=== PATIENT | male | born 1945 | race Caucasian/White ===

== ENCOUNTER 2019-03-08 19:49 | Inpatient (IN) ==
[2019-03-08] MEDS ORDERED: 0.9 % SODIUM CHLORIDE 1,000 ML IV ONE (20:07)
[2019-03-08] MEDS ORDERED: ASPIRIN 81 MG TAB.CHEW CHEWED ONE (20:19)
--- NOTE | 2019-03-08 20:23 | Emergency Department Note ---
Syncope HPI - General Chief Complaint: Syncope Stated Complaint: weakness, feeling of passing out Time Seen by Provider: 03/08/19 19:59 Source: patient, family Mode of arrival: wheelchair Limitations: no limitations - History of Present Illness HPI Narrative: Patient was at [employer] this evening, he was standing when he felt somewhat lightheaded and had a syncope episode that he is feeling much better at this time denies any chest pain no shortness of breath he states that sometimes his blood sugar does get low but his Accu-Chek at this time is 90 has a history of chronic back pain and occasion that has made him feel lightheaded and dizzy as well he states dates he had an episode of [employer] 2 months ago in which he became lightheaded because of his back pain he states. He has no history of A. fib but EKG does shows some A. fib. He states however though he was told that he had an irregular heartbeat in the past, we have some old records but see no indication that there is a history of A. fib - Related Data Home Medications Medication Instructions Recorded Confirmed ascorbic acid (vitamin C) 1,000 mg 1,000 mg PO QDAY tab 05/26/15 09/20/18 tablet cholecalciferol (vitamin D3) 5,000 5,000 unit PO QDAY cap 05/26/15 09/20/18 unit capsule naproxen sodium 220 mg capsule 220 mg PO Q8H PRN cap 05/26/15 09/20/18 vitamin B complex tablet 1 tab-cap PO QDAY tab 05/26/15 09/20/18 Previous Rx's Medication Instructions Recorded blood-glucose meter kit See Dose Instructions .ROUTE 11/11/15 .MEDSUPPLY #1 each Massage Therapy #16 each 11/01/17 amlodipine 10 mg tablet 10 mg PO QAM #90 tab 09/20/18 atorvastatin 20 mg tablet 20 mg PO QDAY #90 tab 09/20/18 methocarbamol 750 mg tablet 750 mg PO QDAY PRN #90 tab 09/20/18 Allergies Allergy/AdvReac Type Severity Reaction Status Date / Time No Known Drug Allergies Allergy Verified 03/08/19 19:57 Review of Systems All systems ED: reviewed and negative except as stated. Constitutional: Denies: fever, chills Eyes: Denies: as per HPI, eye pain ENT ED: Denies: ear pain Cardiovascular: Denies: chest pain, palpitations Respiratory: Denies: shortness of breath, cough Gastrointestinal: Denies: abdominal pain Genitourinary: Denies: dysuria Musculoskeletal: Denies: back pain, joint swelling Integumentary: Denies: rash, lesions Neurological: Denies: headache, weakness Psychiatric: Denies: anxiety, depression Endocrine: Denies: fatigue Hematological/Lymphatic: Denies: easy bleeding Allergic/Immunologic: Denies: facial swelling Past Medical History - Past Medical History [facility] Narrative: All Active Problems (Last Reviewed 09/20/18 @ 08:34 by Benita Seth, ALYSSA, LODGING MANAGER) Fever (Acute) Cough (Acute) Chronic low back pain (Chronic) Cognitive changes (Chronic) History of colonoscopy (Chronic 07/23/16) Osteoarthritis (Chronic) Hypertension, essential (Chronic 07/25/06) Hyperlipemia (Chronic 07/24/07) Diabetes mellitus, type II (Chronic 02/16/07) Past Surgical History (Last Reviewed 09/20/18 @ 08:34 by Benita Seth DNP, LODGING MANAGER) History of colonoscopy (Chronic 07/23/16) History of knee replacement (Resolved ~01/2013) History of lumbar fusion (Resolved ~07/2010) History of tympanoplasty of right ear (Resolved ~1995) S/P cataract surgery (Resolved) S/P excision of ganglion cyst (Resolved ~1990) Family History (Last Reviewed 09/20/18 @ 08:35 by Benita Seth DNP, LODGING MANAGER) Mother Family history of malignant neoplasm Leukopenia Father Family history of diabetes mellitus Grandfather Myocardial infarction Grandmother Leukemia - Social History smoking status: Never smoker Alcohol use: Reports: None Drug use: Reports: none Physical Exam Limitations: no limitations General appearance: alert Head: atraumatic, normocephalic Eye: Present: normal appearance, PERRL ENT: normal exam, normal oropharynx, mucous membranes dry Neck: Present: normal inspection, full ROM Chest: Present: normal inspection, symmetric chest wall rise. Absent: tenderness Respiratory: Present: normal lung sounds bilaterally. Absent: respiratory distress, rales/crackles, wheezes Cardiovascular: Present: regular rate, normal rhythm. Absent: bradycardia, tachycardia Abdominal: Present: soft Extremities: Present: normal inspection, full ROM. Absent: tenderness Back: Present: normal inspection, full ROM. Absent: tenderness Neurological: Present: alert, oriented X3, CN II-XII intact Psychiatric: Present: normal affect, normal mood Skin: Present: warm, cool, dry Course Vital Signs Temperature 97.0 F 03/08/19 19:50 Pulse Rate 84 03/08/19 19:50 Respiratory Rate 18 03/08/19 19:50 Blood Pressure 128/68 03/08/19 19:50 Pulse Oximetry (%) 96 03/08/19 19:50 Temperature 97.0 F 03/08/19 19:50 Pulse Rate 58 L 03/08/19 22:16 Respiratory Rate 13 03/08/19 22:16 Blood Pressure 118/79 03/08/19 22:16 Pulse Oximetry (%) 98 03/08/19 22:16 Syncope - MDM Narrative Medical decision making narrative: On ED patient's A. fib had increased to 130s 140 rate A. fib RVR. Patient given cardia zyme 20 mg bolus along with drip patient still in A. fib but rate controlled at approximately 80WBC is 10,700 the hemoglobin 16.4 hematocrit 49.5 sodium is 142 the potassium 3.5 CK is 275 the MB is 5.2 troponin less than 0.01 BNP is [address] Amanda patient to be admitted - Lab Data Result diagrams: 03/08/19 20:13 03/08/19 21:13 Lab Results 03/08/19 03/08/19 03/08/19 Range/Units 20:13 20:13 20:13 WBC 10.7 (4.5-11.0) K/mcL RBC 5.63 (4.50-5.90) M/mcL Hgb 16.4 (13.5-16.5) g/dL Hct 49.5 (41.0-55.0) % POC Hct 50.0 (41.0-55.0) % MCV 87.9 (80.0-100.0) fL MCH 29.1 (26.0-34.0) pg MCHC 33.2 (31.0-36.0) g/dL RDW 14.0 (11.5-14.5) % Plt Count 275 (140-440) K/mcL MPV 8.6 (7.4-10.4) fL Gran % 72.1 (38.0-78.0) % Lymph % (Auto) 17.5 (15.5-49.0) % Edwards % (Auto) 8.8 (1.0-12.0) % Eos % (Auto) 1.1 (0.0-7.0) % Baso % (Auto) 0.5 (0.0-2.0) % Gran # 7.7 (1.8-8.0) K/mcL Lymph # (Auto) 1.9 (1.5-4.8) K/mcL Edwards # (Auto) 0.9 (0.1-0.9) K/mcL Eos # (Auto) 0.1 (0.0-0.7) K/mcL Baso # (Auto) 0.1 (0.0-0.3) K/mcL POC Sodium 141 (133-145) mmol/L Sodium Not Reportable POC Potassium 4.2 (3.3-5.1) mmol/L Potassium Not Reportable POC Chloride 105 (96-108) mmol/L Chloride Not Reportable Carbon Dioxide Not Reportable POC Total CO2 26 (22-30) mmol/L Anion Gap Not Reportable POC BUN 28 H (8-23) mg/dl BUN Not Reportable Creatinine Not Reportable POC Creatinine 1.3 H (0.7-1.2) mg/dl GFR Calculation Not Reportable Glucose TNP POC Glucose 96 (70-105) mg/dL Calcium Not Reportable POC WB Ioniz Calcium 1.05 L (1.16-1.32) mmol/L Total Bilirubin Not Reportable AST Not Reportable ALT Not Reportable Alkaline Phosphatase Not Reportable Total Creatine Kinase Not Reportable CK-MB (CK-2) Not Reportable Troponin T TNP NT-Pro-B Natriuret Pep Total Protein Not Reportable Albumin Not Reportable Globulin Not Reportable Albumin/Globulin Ratio Not Reportable 03/08/19 03/08/19 03/08/19 Range/Units 20:13 21:13 21:13 WBC (4.5-11.0) K/mcL RBC (4.50-5.90) M/mcL Hgb (13.5-16.5) g/dL Hct (41.0-55.0) % POC Hct (41.0-55.0) % MCV (80.0-100.0) fL MCH (26.0-34.0) pg MCHC (31.0-36.0) g/dL RDW (11.5-14.5) % Plt Count (140-440) K/mcL MPV (7.4-10.4) fL Gran % (38.0-78.0) % Lymph % (Auto) (15.5-49.0) % Edwards % (Auto) (1.0-12.0) % Eos % (Auto) (0.0-7.0) % Baso % (Auto) (0.0-2.0) % Gran # (1.8-8.0) K/mcL Lymph # (Auto) (1.5-4.8) K/mcL Edwards # (Auto) (0.1-0.9) K/mcL Eos # (Auto) (0.0-0.7) K/mcL Baso # (Auto) (0.0-0.3) K/mcL POC Sodium (133-145) mmol/L Sodium 142 POC Potassium (3.3-5.1) mmol/L Potassium 3.5 POC Chloride (96-108) mmol/L Chloride 105 Carbon Dioxide 21 L POC Total CO2 (22-30) mmol/L Anion Gap 16.0 POC BUN (8-23) mg/dl BUN 19 Creatinine 1.0 POC Creatinine (0.7-1.2) mg/dl GFR Calculation 74 Glucose 92 POC Glucose (70-105) mg/dL Calcium 8.4 L POC WB Ioniz Calcium (1.16-1.32) mmol/L Total Bilirubin 0.7 AST 23 ALT 22 Alkaline Phosphatase 78 Total Creatine Kinase 275 H CK-MB (CK-2) 5.2 H Troponin T < 0.01 NT-Pro-B Natriuret Pep TNP 675.4 H Total Protein 7.0 Albumin 4.1 Globulin 2.9 Albumin/Globulin Ratio 1.4 Disposition Pt seen by ASSISTANT DRAFTER/PA only: No Clinical Impression: Atrial fibrillation with RVR, Syncope Disposition: Xfer As Inpt ([facility]) Condition: Fair Referrals: Benita Seth, ALYSSA, LODGING MANAGER [Primary Care Provider] -
--- NOTE | 2019-03-08 20:37 | XRay Report ---
INDICATION: Syncope TECHNIQUE: AP chest x-ray,portable COMPARISON: Previous chest x-rays dated 12/23/2017, 12/16/2017, 03/08/2017 FINDINGS:Lungs are negative. No parenchymal infiltrate or mass. Heart size and vascularity are within normal limits. No pulmonary edema. No pulmonary congestion. IMPRESSION: 1. No acute abnormality 2. No interval change since 12/23/2017 Interpreted and Authenticated by: Sixto Leigh 03/08/19
[2019-03-08] MEDS ORDERED: DILTIAZEM 25 MG/5 ML VIAL IV ONE (20:41)
[2019-03-08] MEDS ORDERED: DILTIAZEM 125 MG in DEXTROSE 5% IN WATER 100 ML IV SCH (20:45)
[2019-03-08 20:46] LABS: Basophils # (Auto) 0.1 K/mcL (0.0-0.3); Basophils % (Auto) 0.5 % (0.0-2.0); Eosinophils # (Auto) 0.1 K/mcL (0.0-0.7); Eosinophils % (Auto) 1.1 % (0.0-7.0); Granulocytes % (Auto) 72.1 % (38.0-78.0); Lymphocytes # (Auto) 1.9 K/mcL (1.5-4.8); Lymphocytes % (Auto) 17.5 % (15.5-49.0); Mean Cell Volume 87.9 fL (80.0-100.0); Mean Corpuscular HGB Conc 33.2 g/dL (31.0-36.0); Monocytes # (Auto) 0.9 K/mcL (0.1-0.9); Monocytes % (Auto) 8.8 % (1.0-12.0); Platelet Count 275 K/mcL (140-440); RBC 5.63 M/mcL (4.50-5.90)
[2019-03-08 22:11] LABS: Creatine Kinase MB 5.2 ng/ml (0-4.9); proBNP 675.4 pg/ml (0-125)
[2019-03-08 22:15] LABS: ALT/SGPT 22 U/l (0-40); Albumin 4.1 gm/dL (3.2-5.2); Albumin/Globulin Ratio 1.4 (1.0-2.3); Alkaline Phosphatase 78 U/L (39-117); Blood Urea Nitrogen 19 mg/dl (8-23); Creatine Kinase 275 IU/L (24-195)
--- NOTE | 2019-03-08 22:32 | Internal Med History&Physical ---
Medical - H&P: [facility] Patient information: Note initiated : 03/08/19 at 10:31 pm Service Date, if different from initiated Date: [] Patient: Carlos Russell a 73 y/o M admitted on for weakness, feeling of passing out. Chief Complaint: [] Chief complaint: loss of consciousness History of present illness: Mr. Russell is a 73 year old M otherwise fairly healthy with a prior history of hypertension was in his baseline state felt. 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 He remained unconsciousness until the arrival of EMS and subsequently was brought in to [facility] ER. Initial workup in the ER was consistent with A. fib with RVR. Patient's was started on diltiazem drip. Initial cardiac enzymes were negative. No other precipitants were identified. Hospitalist service was subsequently consulted for admission At the time of evaluation patient is alert and oriented. Patient denies any other symptoms including chest palpitation, fever, recent changes in medications or [id number] herbal supplements or cough syrup. He denies alcoholism or smoking. He denies prior similar episodes. He follows up with primary care physician Benita Agosto Review of systems 10 point review systems was performed and is negative except as discussed above Medical - H&P: [facility] Medical history: Pneumonia (Resolved) Chronic low back pain (Chronic) Cognitive changes (Chronic) SLUMS test of 22 on 03/2017 Osteoarthritis (Chronic) low back Hypertension, essential (Chronic 07/25/06) currently treated with amlodipine Hyperlipemia (Chronic 07/24/07) no previous medication Diabetes mellitus, type II (Chronic 02/16/07) diagnosed when A1c was >6%; previously treated on Byetta; Victoza previously, stopped per Jayshree Lama PA-C; controlling with diet; no current medication therapy;; right foot with decreased vibratory sense, left foot with absent vibratory sense Cough (Resolved) Dysmetabolic syndrome X (Resolved 05/24/06) Surgical History History of colonoscopy (Chronic 07/23/16) history of adenomatous polyps; due 2020 History of knee replacement (Resolved ~01/2013) right; Dr. Márquez History of lumbar fusion (Resolved ~07/2010) 2010 L4-5; Dr. Márquez History of tympanoplasty of right ear (Resolved ~1995) from eardrum rupture as a child S/P cataract surgery (Resolved) right eye Jul 09, 2004; left eye Jul 29, 2004 S/P excision of ganglion cyst (Resolved ~1990) right ankle Family History Mother , 52 years of age Family history of malignant neoplasm rare type of blood cancer Leukopenia Father , 78 years of age Family history of diabetes mellitus Grandfather , 60 years of age from [place] Myocardial infarction Grandmother Leukemia Medical - H&P: Meds Home Medications Medication Instructions Recorded Confirmed Type ascorbic acid (vitamin C) 1,000 mg 1,000 mg PO QDAY tab 05/26/15 03/08/19 History tablet cholecalciferol (vitamin D3) 5,000 5,000 unit PO QDAY cap 05/26/15 03/08/19 History unit capsule vitamin B complex tablet 1 tab-cap PO QDAY tab 05/26/15 03/08/19 History amlodipine 10 mg tablet 10 mg PO QAM #90 tab 09/20/18 03/08/19 Rx atorvastatin 20 mg tablet 20 mg PO QDAY #90 tab 09/20/18 03/08/19 Rx methocarbamol 750 mg tablet 750 mg PO QDAY PRN #90 tab 09/20/18 03/08/19 Rx Allergies Allergy/AdvReac Type Severity Reaction Status Date / Time No Known Drug Allergies Allergy Verified 03/08/19 19:57 Medical - H&P: Exam - Constitutional Vitals: Temp Pulse Resp BP Pulse Ox 97.0 F 58 L 13 118/79 98 03/08/19 19:50 03/08/19 22:16 03/08/19 22:16 03/08/19 22:16 03/08/19 22:16 General appearance: no acute distress Exam: Alert oriented No sclerae icterus Oral cavity dry No ear discharge Head normocephalic No lymphadenopathy Irregular rhythm/RVR Diminished breath sounds bases Abdomen soft Lower extremity no cyanosis clubbing, no joint swelling and erythema Skin no suspicious lesion Psych alert and cooperative Neuro nonfocal Medical - H&P: Reslt - Labs CBC & Chem 7: 03/09/19 03:34 03/09/19 03:34 Labs: Short CBC 03/08/19 Range/Units 20:13 WBC 10.7 (4.5-11.0) K/mcL Hgb 16.4 (13.5-16.5) g/dL Hct 49.5 (41.0-55.0) % Plt Count 275 (140-440) K/mcL BMP 03/08/19 03/08/19 20:13 21:13 Sodium Not Reportable 142 Potassium Not Reportable 3.5 Chloride Not Reportable 105 Carbon Dioxide Not Reportable 21 L BUN Not Reportable 19 Creatinine Not Reportable 1.0 Glucose TNP 92 Calcium Not Reportable 8.4 L Cardiac Enzymes 03/08/19 03/08/19 03/08/19 Range/Units 20:13 20:13 21:13 Total Creatine Kinase Not Reportable 275 H CK-MB (CK-2) Not Reportable 5.2 H Troponin T TNP 03/08/19 Range/Units 21:13 Total Creatine Kinase CK-MB (CK-2) Troponin T < 0.01 Liver Function 03/08/19 03/08/19 Range/Units 20:13 21:13 Total Bilirubin Not Reportable 0.7 AST Not Reportable 23 ALT Not Reportable 22 Alkaline Phosphatase Not Reportable 78 Albumin Not Reportable 4.1 Medical - H&P: A/P (1) Atrial fibrillation with RVR Current visit: Yes Status: Acute * Afib with RVR- new onset. Continue diltiazem drip. Check echocardiogram. Transfer to telemetry. Start full dose anticoagulation in anticipation of car dioversion * Syncope- likely secondary to A. fib RVR and drop in cerebral perfusion. Check orthostatics/echocardiogram to rule out critical valvular lesion * History of hypertension-restart home meds * Full code * Prophylaxis Lovenox full dose Plan * Continue rate control measures * A. fib workup * Full dose anticoagulation * Telemetry readmit
[2019-03-09] MEDS ORDERED: ACETAMINOPHEN 1,000 MG/100 ML BOTTLE IV PRN (00:35)
[2019-03-09] MEDS ORDERED: DEXTROSE 50% 50 ML VIAL IV PRN (00:35)
[2019-03-09] MEDS ORDERED: MAGNESIUM SULFATE 2 GM/50 ML BAG IV PRN (00:35)
[2019-03-09] MEDS ORDERED: METOPROLOL TARTRATE 5 MG/5 ML VIAL IV PRN (00:35)
[2019-03-09] MEDS ORDERED: DEXTROSE 31 GM ORAL.SUSP PO PRN (00:35)
[2019-03-09] MEDS ORDERED: POTASSIUM CHLORIDE 20 MEQ PACKET PO PRN (00:35)
[2019-03-09] MEDS ORDERED: ACETAMINOPHEN 325 MG TABLET PO PRN (00:35)
[2019-03-09] MEDS ORDERED: ONDANSETRON 4 MG/2 ML VIAL IV PRN (00:35)
[2019-03-09] MEDS: 0.9 % SODIUM CHLORIDE 1,000 ML IV SCH ×2 (00:40→20:27)
[2019-03-09] MEDS ORDERED: DILTIAZEM 30 MG TABLET ONE (01:08)
[2019-03-09] MEDS ORDERED: ENOXAPARIN 120 MG/0.8 ML SYRINGE ONE (01:08)
[2019-03-09] MEDS: DILTIAZEM 30 MG TABLET PO SCH ×3 (02:26→12:21)
[2019-03-09] MEDS: ENOXAPARIN 120 MG/0.8 ML SYRINGE SQ SCH ×2 (02:27→09:39)
[2019-03-09] MEDS: 0.9 % SODIUM CHLORIDE 10 ML SYRINGE IV SCH ×3 (05:44→20:48)
[2019-03-09 06:06] LABS: Mean Cell Volume 89.2 fL (80.0-100.0); Mean Corpuscular HGB Conc 32.9 g/dL (31.0-36.0); Platelet Count 239 K/mcL (140-440); RBC 4.99 M/mcL (4.50-5.90); Red Cell Distribution Width 14.3 % (11.5-14.5)
[2019-03-09 06:38] LABS: ALT/SGPT 19 U/l (0-40); Albumin 3.5 gm/dL (3.2-5.2); Albumin/Globulin Ratio 1.4 (1.0-2.3); Alkaline Phosphatase 69 U/L (39-117); Bilirubin,Direct < 0.2 mg/dL (0.0-0.3); Blood Urea Nitrogen 19 mg/dl (8-23); Gamma Glutamyl Transpeptidase 15 U/L (8-61); Uric Acid 7.7 mg/dL (2.5-8.0)
[2019-03-09 06:57] LABS: Eosinophils % (Manual) 1 % (0-7); Lymphocytes % 22 % (15-49); Monocytes % (Manual) 6 % (1-12); Platelet Estimate NORMAL (NORMAL); RBC Morphology NORMAL (NORMAL); Segmented Neutrophils % 71 % (38-78)
[2019-03-09] MEDS: INSULIN LISPRO 1 UNIT/0.01 ML UNIT SQ SCH ×4 (07:18→20:48)
[2019-03-09] MEDS ORDERED: DILTIAZEM 125 MG in DEXTROSE 5% IN WATER 100 ML IV PRN (09:00)
[2019-03-09] MEDS: MULTIVIT,THER IRON,CA,FA & MIN 1 TABLET PO SCH (09:39)
[2019-03-09] MEDS: DOCUSATE SODIUM 100 MG CAPSULE PO SCH ×2 (09:39→20:48)
--- NOTE | 2019-03-09 11:20 | Internal Med Progress Note ---
Medical - PN: Subj Patient information: Note initiated : 03/09/19 at 11:16 am Service Date, if different from initiated Date: [] Patient: Carlos Russell a 73 y/o M admitted on 03/09/19 for weakness, feeling of passing out. Chief Complaint: [] Interval history: Mr. Russell is a 73 year old M otherwise fairly healthy with a prior history of hypertension was in his baseline state felt. 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 He remained unconsciousness until the arrival of EMS and subsequently was brought in to [facility] ER. Initial workup in the ER was consistent with A. fib with RVR. Patient's was started on diltiazem drip. Initial cardiac enzymes were negative. No other precipitants were identified. Hospitalist service was subsequently consulted for admission At the time of evaluation patient is alert and oriented. Patient denies any other symptoms including chest palpitation, fever, recent changes in medications or [id number] herbal supplements or cough syrup. He denies alcoholism or smoking. He denies prior similar episodes. He follows up with primary care physician Benita Agosto 03/09- patient doing well. No overnight events. No concerns per staff. No fever chills nausea vomiting. Converted to sinus early this morning. Denies chest pain shortness of breath. Negative cardiac enzymes. Negative pro- calcitonin. Echocardiogram pending. DC anticoagulation and diltiazem due to heart rate around 60. Check orthostatics. Possible discharge in 24 hours if clinically stable and remains in sinus. - Constitutional Vitals: Vital Signs Temp Pulse Resp BP Pulse Ox 97.5 F 50 L 20 112/75 98 03/09/19 08:00 03/09/19 04:43 03/09/19 08:00 03/09/19 08:00 03/09/19 08:00 Period Temp Pulse Resp BP Sys/Zamora Pulse Ox Last 24 Hr 97.0 F-97.5 F 44-136 12-30 88-186/61-154 92-99 Intake and Output 03/08/19 03/09/19 03/09/19 21:59 05:59 13:59 Intake Total 1000 497 480 Output Total 325 Balance 1000 497 155 Weight 288 lb 285 lb Intake & Output: Intake & Output 03/08/19 03/09/19 03/09/19 21:59 05:59 13:59 Intake Total 1000 497 480 Output Total 325 Balance 1000 497 155 Weight 288 lb 285 lb Intake: IV 1000 17 Sodium Chloride 0.9% 1,000 ml @ 1000 Wide Open IV .Q0M ONE Rx#: [id number] Cardizem 125 mg In Dextrose 5% 17 in Water 100 ml @ 5 MG/HR 5 mls /hr IV Q12H [facility] Rx#:[id number] Oral 480 480 Output: Void Amount 325 # of times incontinent of urine 0 Other: Meal Snack Breakfast Percent of Meal Consumed 100% 100% Feeding Ability Independent Independent Urine Appearance Clear Urine Color Bright Yellow Urine Odor Strong # Voids 0 General appearance: no acute distress Exam: Alert oriented NSR on telemetry Nonlabored breathing No lymphedema Medical - PN: Obj Da - Labs CBC & Chem 7: 03/09/19 03:34 03/09/19 03:34 Labs: Abnormal Lab Results 03/09/19 03/08/19 03/08/19 03:34 21:13 20:13 Carbon Dioxide 21 L POC BUN 28 H POC Creatinine 1.3 H Glucose 131 H Calcium 8.3 L 8.4 L POC WB Ioniz Calcium 1.05 L Total Creatine Kinase 275 H CK-MB (CK-2) 5.2 H NT-Pro-B Natriuret Pep 675.4 H Meds: Medications Acetaminophen (Tylenol) 650 mg PO Q4-6HP PRN PRN Reason: PAIN/FEVER > 101 Dextrose (Dextrose 50%) 0 ml IV UD PRN PRN Reason: Hypoglycemia Diagnostic Test (Pha) (Accu-Chek) 1 each FS ACHS [facility] Last Admin: 03/09/19 07:18 Dose: 1 each Documented by: Diltiazem HCl (Cardizem) 60 mg PO Q6 [facility] Last Admin: 03/09/19 07:12 Dose: Not Given Documented by: Docusate Sodium (Colace) 100 mg PO BID [facility] Last Admin: 03/09/19 09:39 Dose: 100 mg Documented by: Enoxaparin Sodium (Lovenox) 120 mg SQ BID [facility] Last Admin: 03/09/19 09:39 Dose: 120 mg Documented by: Glucose (Insta-Glucose) 15 gm PO PRN PRN PRN Reason: Hypoglycemia Diltiazem HCl 125 mg/ Dextrose 125 mls @ 5 mls/hr IV Q12HP PRN; Protocol PRN Reason: TITRATE TO KEEP HR<100, SBP>90 Magnesium Sulfate (Magnesium Sulfate) 2 gm in 50 mls @ 50 mls/hr IV UD PRN PRN Reason: MG = or < 1.7 Sodium Chloride (Sodium Chloride 0.9%) 1,000 mls @ 50 mls/hr IV .Q20H [facility] Stop: 03/11/19 12:34 Last Admin: 03/09/19 00:40 Dose: 50 mls/hr Documented by: Acetaminophen (Ofirmev) 1,000 mg in 100 mls @ 200 mls/hr IV Q6HP PRN PRN Reason: PAIN/FEVER > 101 Insulin Human Lispro (Humalog) 0 unit SQ ACHS [facility]; Protocol Last Admin: 03/09/19 07:18 Dose: Not Given Documented by: Iron Carb/Multivit/[place]/Folic Acid (Multivitamin W/Minerals) 1 tab PO DAILY SC H Last Admin: 03/09/19 09:39 Dose: 1 tab Documented by: Ondansetron HCl (Zofran) 4 mg IV Q4-6HP PRN PRN Reason: Nausea And Vomiting Potassium Chloride (Klor-Con) 40 meq PO DAILYP PRN PRN Reason: K+ < 3.5 Senna/Docusate Sodium (Senna Plus Tablet) 1 tab PO HS DIMITRIOS Sodium Chloride (Saline Flush) 10 ml IV Q8 [facility] Last Admin: 03/09/19 05:44 Dose: Not Given Documented by: Medical - PN: A/P - Time Spent With Patient Total time spent is greater than 50% in coordination of care (as documented) at patient's floor/unit and/or counseling patient: 25 - 35 minutes (1) Atrial fibrillation with RVR Status: Acute Assessment and plan: * Afib with RVR- new onset. Converted to sinus. DC diltiazem and anticoagulation. Await echocardiogram. * Syncope- likely secondary to A. fib RVR and drop in cerebral perfusion. Recheck orthostatics/echocardiogram to rule out critical valvular lesion * History of restart amlodipine * History of hyperkalemia continue statin * Full code * Prophylaxis ambulate Plan * DC calcium channel mona/anticoagulation * Await echocardiogram * Syncope workup * Possible discharge in 24 hours Current Visit: Yes Medical - PN: Qual - VTE Deep Vein Thrombosis/Pulmonary Embolism Present on Admission: No
[2019-03-09] MEDS ORDERED: SENNOSIDES/DOCUSATE SODIUM 1 TAB TABLET PO SCH (21:00)
[2019-03-10] MEDS: ENOXAPARIN 120 MG/0.8 ML SYRINGE SQ SCH ×2 (02:51→09:17)
[2019-03-10 05:43] LABS: Mean Cell Volume 89.1 fL (80.0-100.0); Mean Corpuscular HGB Conc 33.3 g/dL (31.0-36.0); Platelet Count 213 K/mcL (140-440); RBC 4.91 M/mcL (4.50-5.90); Red Cell Distribution Width 14.3 % (11.5-14.5)
[2019-03-10] MEDS: 0.9 % SODIUM CHLORIDE 10 ML SYRINGE IV SCH (05:53)
[2019-03-10 06:01] LABS: ALT/SGPT 18 U/l (0-40); Albumin 3.8 gm/dL (3.2-5.2); Albumin/Globulin Ratio 1.5 (1.0-2.3); Alkaline Phosphatase 70 U/L (39-117); Bilirubin,Direct < 0.2 mg/dL (0.0-0.3); Blood Urea Nitrogen 21 mg/dl (8-23); Gamma Glutamyl Transpeptidase 15 U/L (8-61); Uric Acid 6.2 mg/dL (2.5-8.0)
[2019-03-10 06:18] LABS: Basophils % (Manual) 1 % (0-2); Eosinophils % (Manual) 2 % (0-7); Lymphocytes % 30 % (15-49); Monocytes % (Manual) 6 % (1-12); Platelet Estimate NORMAL (NORMAL); RBC Morphology NORMAL (NORMAL); Segmented Neutrophils % 61 % (38-78)
[2019-03-10] MEDS ORDERED: POTASSIUM CHLORIDE 20 MEQ PACKET PO ONE (06:34)
[2019-03-10] MEDS: INSULIN LISPRO 1 UNIT/0.01 ML UNIT SQ SCH ×2 (07:35→11:41)
[2019-03-10] MEDS: DOCUSATE SODIUM 100 MG CAPSULE PO SCH (09:18)
[2019-03-10] MEDS: MULTIVIT,THER IRON,CA,FA & MIN 1 TABLET PO SCH (09:19)
--- NOTE | 2019-03-10 09:53 | Discharge Summary ---
Medical - DS: Prov Patient information: Note initiated : 03/10/19 at 9:50 am Service Date, if different from initiated Date: [] Patient: Carlos Russell 73 y/o M admitted on 03/09/19 for weakness, feeling of passing out. Chief Complaint: [] Date of admission: 03/09/19 00:24 Discharge date: 03/10/19 Primary care physician: Benita Seth Discharging clinician: Alexus Warren Medical - DS: Meds - Discharge Medications Active and Home Medications: Home Medications ascorbic acid (vitamin C) 1,000 mg tablet 1,000 mg PO QDAY tab 05/26/15 [History Confirmed 03/08/19 Last Taken Unknown] cholecalciferol (vitamin D3) 5,000 unit capsule 5,000 unit PO QDAY cap 05/26/15 [History Confirmed 03/08/19 Last Taken Unknown] vitamin B complex tablet 1 tab-cap PO QDAY tab 05/26/15 [History Confirmed 03/08/19 Last Taken Unknown] amlodipine 10 mg tablet 10 mg PO QAM #90 tab 09/20/18 [Rx Confirmed 03/08/19 Last Taken Unknown] atorvastatin 20 mg tablet 20 mg PO QDAY #90 tab 09/20/18 [Rx Confirmed 03/08/19 Last Taken Unknown] methocarbamol 750 mg tablet 750 mg PO QDAY PRN #90 tab 09/20/18 [Rx Confirmed 03/08/19 Last Taken Unknown] Medical - DS: Hosp Hospital course: Mr. Russell is a 73 year old M otherwise fairly healthy with a prior history of hypertension was in his baseline state felt. 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 He remained unconsciousness until the arrival of EMS and subsequently was brought in to [facility] ER. Initial workup in the ER was consistent with A. fib with RVR. Patient's was started on diltiazem drip. Initial cardiac enzymes were negative. No other precipitants were identified. Hospitalist service was subsequently consulted for admission At the time of evaluation patient is alert and oriented. Patient denies any other symptoms including chest palpitation, fever, recent changes in medications or iweo-pne-moqysif herbal supplements or cough syrup. He denies alcoholism or smoking. He denies prior similar episodes. He follows up with primary care physician Benita Agosto 03/09- patient doing well. No overnight events. No concerns per staff. No fever chills nausea vomiting. Converted to sinus early this morning. Denies chest pain shortness of breath. Negative cardiac enzymes. Negative pro- calcitonin. Echocardiogram pending. DC anticoagulation and diltiazem due to heart rate around 60. Check orthostatics. Possible discharge in 24 hours if clinically stable and remains in sinus. 03/10 Patient seen and examined, no acute overnight events, no events on telemetry patient remains in sinus rhythm. Stable for discharge he will follow-up with cardiology as an outpatient. In summary patient admitted to the hospital for atrial fibrillation and syncope, I believe the patient has poor baseline on his EKG and could very well be just atrial flutter. He converted back to sinus rhythm monitor for 48 hours and patient remained stable. Echocardiogram done shows left ventricle is mildly dilated mild LVH normal systolic function mildly dilated right ventricle and left atrium along with right atrium IVC was not visualized The patient will follow-up with cardiology as an outpatient no changes have been done to the patient's chronic home medication list Discharge diagnosis: Aflutter / syncope - Time Spent with Patient Total time spent providing and/or coordinating discharge services: Less than 30 minutes Medical - DS: Exam - Constitutional Vitals: Vital Signs Temp Pulse Resp BP Pulse Ox 03/10/19 07:51 97.7 F 20 133/75 98 03/10/19 07:31 63 133/75 96 03/10/19 04:16 50 L 94 03/10/19 04:01 51 L 127/82 96 03/10/19 02:24 71 142/86 99 03/10/19 00:36 64 97 03/10/19 00:28 59 L 150/81 97 03/09/19 21:32 57 L 93 03/09/19 20:44 64 134/79 95 03/09/19 16:00 98.4 F 20 126/75 98 03/09/19 15:35 126/75 03/09/19 12:01 98 F 20 128/74 97 Intake and Output 03/09/19 03/10/19 03/10/19 21:59 05:59 13:59 Intake Total 1529 1440 240 Output Total 1315 300 Balance 1529 125 -60 Intake: IV 989 Sodium Chloride 0.9% 1,000 ml @ 989 50 mls/hr IV .Q20H [facility] Rx#: [id number] Oral 540 1440 240 Output: Void Amount 1315 300 Other: Meal Dinner Breakfast Percent of Meal Consumed 100% 100% Feeding Ability Independent Independent Urine Appearance Clear Urine Color Bright Yellow Urine Odor Normal Weight 281 lb 4.8 oz Medical - DS: Data Labs on day of discharge: Labs from last 24 hours 03/10/19 03/10/19 03:41 03:41 WBC 6.6 RBC 4.91 Hgb 14.5 Hct 43.7 MCV 89.1 MCH 29.6 MCHC 33.3 RDW 14.3 Plt Count 213 MPV 8.6 Total Counted 100 Seg Neutrophils % 61 Band Neutrophils % Not Reportable Lymphocytes % 30 Monocytes % (Manual) 6 Eosinophils % (Manual) 2 Basophils % (Manual) 1 Platelet Estimate Normal RBC Morphology Normal Sodium 143 Potassium 3.5 Chloride 108 Carbon Dioxide 24 Anion Gap 11.0 BUN 21 Creatinine 0.8 GFR Calculation 89 Glucose 87 Uric Acid 6.2 Calcium 8.3 L Phosphorus 2.9 Magnesium 2.0 Total Bilirubin 0.5 Direct Bilirubin < 0.2 GGT 15 AST 18 ALT 18 Alkaline Phosphatase 70 Lactate Dehydrogenase 205 Total Protein 6.3 Albumin 3.8 Globulin 2.5 Albumin/Globulin Ratio 1.5 Triglycerides 53 Medical - DS: A/P - Patient/Caregiver Discharge Instructions Activity: increase activity as tolerated Diet: Cardiac Additional Instructions: Follow up with PCP in 1 week FOllow up with Cardiology in 1-2 weeks Go to the ER if worsening symptoms, chest pain, syncope or any other acute concerns. No changes made to your chronic home medication list. - Follow up Plan Follow up with: Benita Seth DNP, [employer] [facility] [Primary Care Provider] - Jonatahn Duque MD [Physician] - Disposition: Home, Self-Care Prognosis: Fair Rehab Potential: Fair I certify that the patient requires SNF services: No Overall status at discharge: patient is progressing back to baseline Medical - DS: Qual - VTE Deep Vein Thrombosis/Pulmonary Embolism Present on Admission: No
== END 2019-03-10 13:24 | disposition home or self-care (01) | DRG 310 ==
LOC: ED 19:49 → ICU 03-09 00:24
PROVIDERS: ADMIT Internal Medicine; ATTEND Internal Medicine